=== PATIENT | male | born 1945 | race Caucasian/White ===

== ENCOUNTER 2024-01-12 23:15 | Inpatient (IN) ==
[2024-01-13] MEDS: Lactated Ringers 1000 ml BAG 1,000 ML IV ONE (00:24)
[2024-01-13] MEDS: Lactated Ringers 1000 ml BAG 1,000 ML IV SCH ×3 (00:24→22:14)
[2024-01-13 00:44] LABS: Alcohol, S < 13 mg/dL (<13)
[2024-01-13 00:46] LABS: Albumin 3.5 g/dL (3.2-5.2); Albumin/Globulin Ratio 1.2 (1-3); Creatinine, Serum 10.48 mg/dL (0.67-1.17); Potassium 4.5 mmol/L (3.5-5.0); Total Bilirubin 0.7 mg/dL (0.2-1.0); Total Protein 6.5 g/dL (6.4-8.9); eGFR CKD-EPI 4.5 (>60)
[2024-01-13 01:05] LABS: Creatine Kinase 8604 U/L (10-223)
[2024-01-13 01:06] LABS: Hematocrit 40.6 % (38-53); Hemoglobin 13.8 g/dL (13.2-16.3); Mean Corpuscular Hemoglobin 31.2 pg (27-33); Mean Corpuscular Hgb Conc 33.9 g/dL (31-36); Mean Corpuscular Volume 92.1 fL (80-97); Mean Platelet Volume 9.1 fL (7.5-11.2); Platelet Count 262 10^3/uL (150-450); Red Blood Count 4.41 10^6/uL (4.06-5.63); Red Cell Distribution Width 13.6 % (12-17); White Blood Count 24.1 10^3/uL (3.6-10.2)
[2024-01-13 01:18] LABS: INR 1.24 (0.83-1.13)
[2024-01-13 01:27] LABS: Magnesium 2.3 mg/dL (1.9-2.7); Phosphorus 5.3 mg/dL (2.5-5.0); Uric Acid 13.2 mg/dL (4.4-7.6)
[2024-01-13 02:06] LABS: High Sensitivity Troponin 1 Hr 136 pg/mL (<20)
[2024-01-13 02:19] LABS: ABS Lymphocytes 0.6 10^3/uL (1.0-4.8); ABS Monocytes 1.8 10^3/uL (0.0-1.1); ABS Neutrophils 21.7 10^3/uL (1.5-7.6); Lymphocyte % 2.3 %
[2024-01-13] MEDS: cefTRIAXone 1 gm/50 mL D5W 1 GM/50 ML BAG IV ONE (03:43)
[2024-01-13 03:53] LABS: Urine Appearance Extra Turbid; Urine Bilirubin Negative (Negative); Urine Blood 3+ (Negative); Urine Glucose Negative (Negative); Urine Ketones Trace (Negative); Urine Nitrite 2+ (Negative); Urine Protein 2+ (>=100 mg/dL) (Negative); Urine Specific Gravity 1.011 (1.002-1.030); Urine Urobilinogen Negative (Negative)
[2024-01-13 04:08] LABS: Urine Bacteria 3+ /HPF (Absent); Urine Red Blood Cell 3+(>10/hpf) /HPF (0-Trace); Urine White Blood Cell 3+(>20/hpf) /HPF (0-Trace)
[2024-01-13 04:31] LABS: C Reactive Protein 210.84 mg/L (<8.01)
[2024-01-13 04:33] LABS: Urine Color Yellow
[2024-01-13 05:15] LABS: Erythrocyte Sed Rate 40 mm/Hr (0-19)
[2024-01-13 06:11] LABS: Hematocrit 39.4 % (38-53); Hemoglobin 13.3 g/dL (13.2-16.3); Mean Corpuscular Hgb Conc 33.9 g/dL (31-36); Mean Corpuscular Volume 91.5 fL (80-97); Mean Platelet Volume 8.7 fL (7.5-11.2); Platelet Count 225 10^3/uL (150-450); Red Cell Distribution Width 13.3 % (12-17); White Blood Count 24.2 10^3/uL (3.6-10.2)
[2024-01-13 06:49] LABS: Calcium 7.7 mg/dL (8.6-10.3); Creatinine, Serum 10.68 mg/dL (0.67-1.17); Potassium 4.4 mmol/L (3.5-5.0); eGFR CKD-EPI 4.4 (>60)
[2024-01-13 06:53] LABS: Magnesium 2.1 mg/dL (1.9-2.7)
[2024-01-13 07:44] LABS: ABS Lymphocytes 0.4 10^3/uL (1.0-4.8); ABS Monocytes 1.7 10^3/uL (0.0-1.1); ABS Neutrophils 21.9 10^3/uL (1.5-7.6); Lymphocyte % 1.8 %; RBC Morphology Normal (Normal)
[2024-01-13] MEDS: fentaNYL 100 mcg/2 ml 50 MCG/ML VIAL ONE (15:33)
[2024-01-13] MEDS: ceFAZolin 1 GM in Dextrose 1 GM/50 ML BAG IVPB SCH (16:54)
[2024-01-13] MEDS: Lactated Ringers 1000 ml BAG 500 ML IV ONE (22:35)
[2024-01-14] MEDS ORDERED: cefTRIAXone 1 gm/50 mL D5W 1 GM/50 ML BAG IV SCH ×2 (03:00)
[2024-01-14 07:46] LABS: ABS Lymphocytes 0.6 10^3/uL (1.0-4.8); ABS Monocytes 1.1 10^3/uL (0.0-1.1); ABS Neutrophils 19.6 10^3/uL (1.5-7.6); Hematocrit 41.1 % (38-53); Hemoglobin 13.7 g/dL (13.2-16.3); Lymphocyte % 2.6 %; Mean Corpuscular Hemoglobin 30.7 pg (27-33); Mean Corpuscular Hgb Conc 33.3 g/dL (31-36); Mean Corpuscular Volume 92.3 fL (80-97); Mean Platelet Volume 8.7 fL (7.5-11.2); Platelet Count 225 10^3/uL (150-450); Red Blood Count 4.46 10^6/uL (4.06-5.63); Red Cell Distribution Width 13.4 % (12-17); White Blood Count 21.3 10^3/uL (3.6-10.2)
[2024-01-14 07:52] LABS: INR 1.36 (0.83-1.13)
[2024-01-14 08:34] LABS: C Reactive Protein 367.74 mg/L (<8.01); Calcium 7.7 mg/dL (8.6-10.3); Creatinine, Serum 6.26 mg/dL (0.67-1.17); Magnesium 2.1 mg/dL (1.9-2.7); Phosphorus 4.4 mg/dL (2.5-5.0); eGFR CKD-EPI 8.4 (>60)
[2024-01-14 11:48] LABS: Hematocrit 40.7 % (38-53); Hemoglobin 13.6 g/dL (13.2-16.3); Mean Corpuscular Hemoglobin 30.7 pg (27-33); Mean Corpuscular Hgb Conc 33.4 g/dL (31-36); Platelet Count 249 10^3/uL (150-450); Red Blood Count 4.42 10^6/uL (4.06-5.63); Red Cell Distribution Width 13.7 % (12-17)
[2024-01-14 11:56] LABS: Activated Partial Thrombo Time 28.5 seconds (26.0-38.0); INR 1.3 (0.83-1.13)
[2024-01-14 12:02] LABS: Creatinine, Serum 6.02 mg/dL (0.67-1.17); eGFR CKD-EPI 8.8 (>60)
[2024-01-14 12:35] LABS: ABS Lymphocytes 0.6 10^3/uL (1.0-4.8); ABS Neutrophils 21.4 10^3/uL (1.5-7.6); ABS Nucleated RBC 0.01 10^3/ul; Lymphocyte % 2.6 %; Tear Drop Cells 2+
[2024-01-14] MEDS: NS 0.9% 1000 ml BAG 1,000 ML IV SCH (15:49)
[2024-01-14] MEDS: Acetaminophen IV 1 GM/100ML 1,000 MG/100 ML BAG IV PRN (18:07)
[2024-01-14] MEDS: Heparin 5000 UNITS/ML 1 mL VIAL SUBCUT SCH (20:20)
[2024-01-15 06:22] LABS: ABS Lymphocytes 0.7 10^3/uL (1.0-4.8); ABS Monocytes 0.6 10^3/uL (0.0-1.1); ABS Neutrophils 19.8 10^3/uL (1.5-7.6); ABS Nucleated RBC 0.01 10^3/ul; Hematocrit 38.2 % (38-53); Hemoglobin 12.8 g/dL (13.2-16.3); Lymphocyte % 3.2 %; Mean Corpuscular Hgb Conc 33.6 g/dL (31-36); Mean Corpuscular Volume 92.4 fL (80-97); Mean Platelet Volume 8.9 fL (7.5-11.2); Platelet Count 228 10^3/uL (150-450); Red Blood Count 4.14 10^6/uL (4.06-5.63); Red Cell Distribution Width 13.9 % (12-17); White Blood Count 21.1 10^3/uL (3.6-10.2)
[2024-01-15 07:15] LABS: Anion Gap 15 mmol/L (2-16); Blood Urea Nitrogen 91 mg/dL (6-24); CO2 Carbon Dioxide 21 mmol/L (22-32); Calcium 7.7 mg/dL (8.6-10.3); Chloride 113 mmol/L (101-111); Creatinine, Serum 4.08 mg/dL (0.67-1.17); Glucose 155 mg/dL (70-100); Magnesium 2.4 mg/dL (1.9-2.7); Sodium 149 mmol/L (135-145)
[2024-01-15] MEDS ORDERED: Labetalol IV 5 MG/ML 20 ml VIAL IV PUSH PRN (07:22)
[2024-01-15 09:02] LABS: Albumin 2.8 g/dL (3.2-5.2); C Reactive Protein 347.13 mg/L (<8.01); Direct Bilirubin 0.2 mg/dL (0.03-0.18); Globulin 2.8 g/dL (2-4); Indirect Bilirubin 0.5 mg/dL (0.3-1.0); Phosphorus 4.1 mg/dL (2.5-5.0); Potassium Redraw 3.8 mmol/L (3.5-5.0); Total Bilirubin 0.7 mg/dL (0.2-1.0); Total Protein 5.6 g/dL (6.4-8.9)
[2024-01-15] MEDS: D5W 1/2 NS 1000 ml BAG 1,000 ML IV SCH ×2 (12:13→19:54)
[2024-01-15] MEDS: ceFAZolin 1 GM in Dextrose 1 GM/50 ML BAG IVPB SCH (12:15)
[2024-01-16 06:19] LABS: Hematocrit 39.2 % (38-53); Mean Corpuscular Hemoglobin 30.7 pg (27-33); Mean Corpuscular Hgb Conc 33.2 g/dL (31-36); Mean Corpuscular Volume 92.5 fL (80-97); Mean Platelet Volume 9.8 fL (7.5-11.2); Platelet Count 236 10^3/uL (150-450); Red Blood Count 4.23 10^6/uL (4.06-5.63); Red Cell Distribution Width 13.9 % (12-17); White Blood Count 18.7 10^3/uL (3.6-10.2)
[2024-01-16 06:44] LABS: Albumin 2.7 g/dL (3.2-5.2); Albumin/Globulin Ratio 0.9 (1-3); Calcium 7.7 mg/dL (8.6-10.3); Creatinine, Serum 2.93 mg/dL (0.67-1.17); Globulin 2.9 g/dL (2-4); Magnesium 2.4 mg/dL (1.9-2.7); Phosphorus 3.1 mg/dL (2.5-5.0); Potassium 3.9 mmol/L (3.5-5.0); Total Bilirubin 0.8 mg/dL (0.2-1.0); Total Protein 5.6 g/dL (6.4-8.9); eGFR CKD-EPI 20.8 (>60)
[2024-01-16 07:36] LABS: ABS Basophils 0.1 10^3/uL (0.0-0.1); ABS Lymphocytes 0.6 10^3/uL (1.0-4.8); ABS Monocytes 0.5 10^3/uL (0.0-1.1); ABS Neutrophils 17.4 10^3/uL (1.5-7.6); Eosinophil % 0.2 %; Lymphocyte % 3.4 %
[2024-01-17 06:18] LABS: Hematocrit 38.7 % (38-53); Hemoglobin 12.8 g/dL (13.2-16.3); Mean Corpuscular Hemoglobin 30.7 pg (27-33); Mean Corpuscular Hgb Conc 33.1 g/dL (31-36); Mean Corpuscular Volume 92.7 fL (80-97); Mean Platelet Volume 9.4 fL (7.5-11.2); Platelet Count 291 10^3/uL (150-450); Red Blood Count 4.18 10^6/uL (4.06-5.63); Red Cell Distribution Width 14.1 % (12-17); White Blood Count 19.4 10^3/uL (3.6-10.2)
[2024-01-17 06:47] LABS: Calcium 7.8 mg/dL (8.6-10.3); Creatinine, Serum 2.41 mg/dL (0.67-1.17); Magnesium 2.2 mg/dL (1.9-2.7); Phosphorus 3.2 mg/dL (2.5-5.0); Potassium 3.8 mmol/L (3.5-5.0); eGFR CKD-EPI 26.3 (>60)
[2024-01-17 08:24] LABS: ABS Eosinophils 0.2 10^3/uL (0.0-0.5); ABS Lymphocytes 0.8 10^3/uL (1.0-4.8); ABS Monocytes 0.7 10^3/uL (0.0-1.1); ABS Neutrophils 17.7 10^3/uL (1.5-7.6); Eosinophil % 1.1 %; Lymphocyte % 3.9 %
[2024-01-17] MEDS: ceFAZolin 1 GM in Dextrose 1 GM/50 ML BAG IVPB SCH (09:33)
[2024-01-17 15:35] LABS: Uric Acid 9.2 mg/dL (4.4-7.6)
[2024-01-17 18:11] LABS: Body Fluid Total Nucleated 4544 /mcL
[2024-01-17 18:13] LABS: Body Fluid Appearance Cloudy; Body Fluid Color Yellow; Body Fluid Source Synovial Fluid
[2024-01-17 18:36] LABS: Body Fluid Mono 5 %; Body Fluid NRBC 3; Body Fluid Total Cells Counted 200
[2024-01-18 06:31] LABS: Hematocrit 37.6 % (38-53); Hemoglobin 12.4 g/dL (13.2-16.3); Mean Corpuscular Hemoglobin 30.4 pg (27-33); Mean Corpuscular Volume 92.3 fL (80-97); Mean Platelet Volume 8.9 fL (7.5-11.2); Platelet Count 307 10^3/uL (150-450); Red Blood Count 4.07 10^6/uL (4.06-5.63); Red Cell Distribution Width 13.9 % (12-17); White Blood Count 23.2 10^3/uL (3.6-10.2)
[2024-01-18 07:09] LABS: Albumin 2.5 g/dL (3.2-5.2); Albumin/Globulin Ratio 0.9 (1-3); Calcium 7.8 mg/dL (8.6-10.3); Creatinine, Serum 2.1 mg/dL (0.67-1.17); Globulin 2.7 g/dL (2-4); Magnesium 2.1 mg/dL (1.9-2.7); Potassium 3.7 mmol/L (3.5-5.0); Total Bilirubin 0.6 mg/dL (0.2-1.0); Total Protein 5.2 g/dL (6.4-8.9)
[2024-01-18 08:47] LABS: ABS Eosinophils 0.2 10^3/uL (0.0-0.5); ABS Monocytes 0.7 10^3/uL (0.0-1.1); ABS Neutrophils 21.3 10^3/uL (1.5-7.6); Eosinophil % 0.9 %; Lymphocyte % 4.2 %; RBC Morphology Normal (Normal)
[2024-01-18] MEDS: Oxacillin 2 GM in NS 0.9% 100 ml BAG 100 ML IVPB SCH (16:15)
[2024-01-19 06:15] LABS: Hematocrit 37.6 % (38-53); Hemoglobin 12.4 g/dL (13.2-16.3); Mean Corpuscular Hemoglobin 30.6 pg (27-33); Mean Corpuscular Volume 92.9 fL (80-97); Mean Platelet Volume 9.2 fL (7.5-11.2); Platelet Count 359 10^3/uL (150-450); Red Blood Count 4.05 10^6/uL (4.06-5.63); Red Cell Distribution Width 13.9 % (12-17); White Blood Count 25.5 10^3/uL (3.6-10.2)
[2024-01-19 06:41] LABS: Albumin 2.5 g/dL (3.2-5.2); Albumin/Globulin Ratio 0.8 (1-3); C Reactive Protein 181.04 mg/L (<8.01); Calcium 7.7 mg/dL (8.6-10.3); Creatinine, Serum 2.17 mg/dL (0.67-1.17); Globulin 3.1 g/dL (2-4); Magnesium 2.1 mg/dL (1.9-2.7); Total Bilirubin 0.6 mg/dL (0.2-1.0); Total Protein 5.6 g/dL (6.4-8.9); eGFR CKD-EPI 29.8 (>60)
[2024-01-19 06:45] LABS: ABS Eosinophils 0.2 10^3/uL (0.0-0.5); ABS Monocytes 1.1 10^3/uL (0.0-1.1); ABS Neutrophils 23.1 10^3/uL (1.5-7.6); ABS Nucleated RBC 0.01 10^3/ul; Eosinophil % 0.8 %
[2024-01-19] MEDS: Lactated Ringers 1000 ml BAG 1,000 ML IV SCH (07:43)
[2024-01-19 08:06] LABS: Erythrocyte Sed Rate 57 mm/Hr (0-19)
[2024-01-19] MEDS ORDERED: oxyCODONE SR 10 mg TAB PO SCH (22:00)
[2024-01-20 07:01] LABS: Hematocrit 35.3 % (38-53); Hemoglobin 11.6 g/dL (13.2-16.3); Mean Corpuscular Hemoglobin 30.5 pg (27-33); Mean Corpuscular Hgb Conc 32.8 g/dL (31-36); Mean Corpuscular Volume 93.1 fL (80-97); Mean Platelet Volume 9.6 fL (7.5-11.2); Platelet Count 358 10^3/uL (150-450); Red Blood Count 3.79 10^6/uL (4.06-5.63); Red Cell Distribution Width 13.5 % (12-17); White Blood Count 23.3 10^3/uL (3.6-10.2)
[2024-01-20 07:14] LABS: ABS Eosinophils 0.2 10^3/uL (0.0-0.5); ABS Lymphocytes 1.1 10^3/uL (1.0-4.8); ABS Monocytes 1.1 10^3/uL (0.0-1.1); ABS Neutrophils 20.9 10^3/uL (1.5-7.6); Lymphocyte % 4.6 %
[2024-01-20 09:57] LABS: Albumin 2.3 g/dL (3.2-5.2); Albumin/Globulin Ratio 0.8 (1-3); Calcium 7.5 mg/dL (8.6-10.3); Creatinine, Serum 2.46 mg/dL (0.67-1.17); Globulin 2.9 g/dL (2-4); Total Bilirubin 0.5 mg/dL (0.2-1.0); Total Protein 5.2 g/dL (6.4-8.9); eGFR CKD-EPI 25.7 (>60)
[2024-01-20] MEDS: fentaNYL 100 mcg/2 ml 50 MCG/ML VIAL ONE (22:05)
[2024-01-21 06:29] LABS: ABS Eosinophils 0.2 10^3/uL (0.0-0.5); ABS Lymphocytes 0.9 10^3/uL (1.0-4.8); ABS Monocytes 1.3 10^3/uL (0.0-1.1); ABS Neutrophils 16.1 10^3/uL (1.5-7.6); Eosinophil % 1.2 %; Hematocrit 34.3 % (38-53); Hemoglobin 11.4 g/dL (13.2-16.3); Lymphocyte % 4.8 %; Mean Corpuscular Hemoglobin 30.8 pg (27-33); Mean Corpuscular Hgb Conc 33.3 g/dL (31-36); Mean Corpuscular Volume 92.5 fL (80-97); Mean Platelet Volume 9.4 fL (7.5-11.2); Platelet Count 376 10^3/uL (150-450); Red Blood Count 3.71 10^6/uL (4.06-5.63); Red Cell Distribution Width 13.7 % (12-17); White Blood Count 18.5 10^3/uL (3.6-10.2)
[2024-01-21 06:43] LABS: Calcium 7.5 mg/dL (8.6-10.3); Creatinine, Serum 1.89 mg/dL (0.67-1.17); Magnesium 1.8 mg/dL (1.9-2.7); Potassium 3.9 mmol/L (3.5-5.0); eGFR CKD-EPI 35.2 (>60)
[2024-01-21] MEDS: Magnesium Sulfate 2 gm BAG 2 GM/50 ML BAG IVPB ONE (09:51)
[2024-01-21 11:27] LABS: C Reactive Protein 141.17 mg/L (<8.01)
[2024-01-21 14:51] LABS: B. burgdorferi PCR Negative (Negative); B. garinii/B. afzellii PCR Negative (Negative); Lyme Disease Source SYNOVIAL
[2024-01-22 07:07] LABS: ABS Eosinophils 0.2 10^3/uL (0.0-0.5); ABS Monocytes 0.9 10^3/uL (0.0-1.1); ABS Neutrophils 17.9 10^3/uL (1.5-7.6); Eosinophil % 1.2 %; Hematocrit 33.1 % (38-53); Hemoglobin 11.1 g/dL (13.2-16.3); Lymphocyte % 5.1 %; Mean Corpuscular Hemoglobin 30.9 pg (27-33); Mean Corpuscular Hgb Conc 33.4 g/dL (31-36); Mean Corpuscular Volume 92.5 fL (80-97); Mean Platelet Volume 8.9 fL (7.5-11.2); Platelet Count 387 10^3/uL (150-450); Red Blood Count 3.58 10^6/uL (4.06-5.63); Red Cell Distribution Width 13.7 % (12-17); White Blood Count 20.1 10^3/uL (3.6-10.2)
[2024-01-22 07:39] LABS: Calcium 7.4 mg/dL (8.6-10.3); Creatinine, Serum 1.81 mg/dL (0.67-1.17); Magnesium 1.9 mg/dL (1.9-2.7); Potassium 3.8 mmol/L (3.5-5.0); eGFR CKD-EPI 37.1 (>60)
[2024-01-23 06:29] LABS: ABS Eosinophils 0.1 10^3/uL (0.0-0.5); ABS Nucleated RBC 0.01 10^3/ul; Eosinophil % 0.8 %; Hematocrit 34.1 % (38-53); Hemoglobin 11.1 g/dL (13.2-16.3); Lymphocyte % 5.3 %; Mean Corpuscular Hemoglobin 30.5 pg (27-33); Mean Corpuscular Hgb Conc 32.6 g/dL (31-36); Mean Corpuscular Volume 93.7 fL (80-97); Mean Platelet Volume 9.1 fL (7.5-11.2); Platelet Count 434 10^3/uL (150-450); Red Blood Count 3.64 10^6/uL (4.06-5.63); Red Cell Distribution Width 13.8 % (12-17); White Blood Count 18.2 10^3/uL (3.6-10.2)
[2024-01-23 06:52] LABS: Albumin 2.3 g/dL (3.2-5.2); Albumin/Globulin Ratio 0.7 (1-3); Calcium 7.5 mg/dL (8.6-10.3); Creatinine, Serum 1.75 mg/dL (0.67-1.17); Globulin 3.3 g/dL (2-4); Magnesium 1.9 mg/dL (1.9-2.7); Potassium 3.9 mmol/L (3.5-5.0); Total Bilirubin 0.6 mg/dL (0.2-1.0); Total Protein 5.6 g/dL (6.4-8.9); eGFR CKD-EPI 38.6 (>60)
[2024-01-24 06:10] LABS: ABS Eosinophils 0.1 10^3/uL (0.0-0.5); ABS Lymphocytes 0.7 10^3/uL (1.0-4.8); ABS Neutrophils 15.5 10^3/uL (1.5-7.6); Eosinophil % 0.8 %; Hematocrit 32.9 % (38-53); Hemoglobin 10.9 g/dL (13.2-16.3); Lymphocyte % 4.1 %; Mean Corpuscular Hemoglobin 30.9 pg (27-33); Mean Corpuscular Hgb Conc 33.2 g/dL (31-36); Mean Platelet Volume 8.9 fL (7.5-11.2); Platelet Count 434 10^3/uL (150-450); Red Blood Count 3.54 10^6/uL (4.06-5.63); White Blood Count 17.4 10^3/uL (3.6-10.2)
[2024-01-24 07:00] LABS: Albumin 2.1 g/dL (3.2-5.2); Albumin/Globulin Ratio 0.6 (1-3); Calcium 7.5 mg/dL (8.6-10.3); Creatinine, Serum 1.77 mg/dL (0.67-1.17); Globulin 3.3 g/dL (2-4); Magnesium 1.7 mg/dL (1.9-2.7); Total Bilirubin 0.5 mg/dL (0.2-1.0); Total Protein 5.4 g/dL (6.4-8.9); eGFR CKD-EPI 38.1 (>60)
[2024-01-24] MEDS: NS 0.9% 1000 ml BAG 1,000 ML IV SCH (11:17)
[2024-01-25 06:10] LABS: ABS Eosinophils 0.1 10^3/uL (0.0-0.5); ABS Lymphocytes 0.7 10^3/uL (1.0-4.8); ABS Monocytes 0.9 10^3/uL (0.0-1.1); ABS Neutrophils 13.4 10^3/uL (1.5-7.6); Eosinophil % 0.9 %; Hematocrit 28.8 % (38-53); Hemoglobin 9.8 g/dL (13.2-16.3); Lymphocyte % 4.8 %; Mean Corpuscular Hemoglobin 31.7 pg (27-33); Mean Platelet Volume 8.6 fL (7.5-11.2); Platelet Count 455 10^3/uL (150-450); Red Blood Count 3.09 10^6/uL (4.06-5.63); Red Cell Distribution Width 13.7 % (12-17); White Blood Count 15.3 10^3/uL (3.6-10.2)
[2024-01-25 06:51] LABS: Calcium 7.4 mg/dL (8.6-10.3); Creatinine, Serum 1.68 mg/dL (0.67-1.17); Magnesium 1.6 mg/dL (1.9-2.7); Potassium 3.9 mmol/L (3.5-5.0); eGFR CKD-EPI 40.6 (>60)
[2024-01-26 05:20] LABS: ABS Eosinophils 0.2 10^3/uL (0.0-0.5); ABS Lymphocytes 0.7 10^3/uL (1.0-4.8); ABS Monocytes 0.7 10^3/uL (0.0-1.1); ABS Neutrophils 12.7 10^3/uL (1.5-7.6); ABS Nucleated RBC 0.01 10^3/ul; Eosinophil % 1.2 %; Hematocrit 29.3 % (38-53); Hemoglobin 9.7 g/dL (13.2-16.3); Mean Corpuscular Hemoglobin 30.6 pg (27-33); Mean Corpuscular Hgb Conc 32.9 g/dL (31-36); Mean Platelet Volume 8.3 fL (7.5-11.2); Platelet Count 479 10^3/uL (150-450); Red Blood Count 3.15 10^6/uL (4.06-5.63); Red Cell Distribution Width 13.6 % (12-17); White Blood Count 14.3 10^3/uL (3.6-10.2)
[2024-01-26 05:48] LABS: Albumin/Globulin Ratio 0.6 (1-3); Calcium 7.5 mg/dL (8.6-10.3); Creatinine, Serum 1.72 mg/dL (0.67-1.17); Globulin 3.2 g/dL (2-4); Magnesium 1.6 mg/dL (1.9-2.7); Potassium 3.8 mmol/L (3.5-5.0); Total Bilirubin 0.4 mg/dL (0.2-1.0); Total Protein 5.2 g/dL (6.4-8.9); eGFR CKD-EPI 39.4 (>60)
[2024-01-26] MEDS: Magnesium Sulfate 2 gm BAG 2 GM/50 ML BAG IVPB ONE (09:16)
[2024-01-26] MEDS: Lactated Ringers 1000 ml BAG 1,000 ML IV SCH (10:27)
[2024-01-26] MEDS: Magnesium Sulfate IV 1GM/100ML 1 GM/100 ML BAG IV ONE (10:27)
[2024-01-27 06:28] LABS: ABS Eosinophils 0.2 10^3/uL (0.0-0.5); ABS Lymphocytes 0.8 10^3/uL (1.0-4.8); ABS Monocytes 0.8 10^3/uL (0.0-1.1); ABS Neutrophils 9.4 10^3/uL (1.5-7.6); Eosinophil % 1.4 %; Hematocrit 28.8 % (38-53); Hemoglobin 9.8 g/dL (13.2-16.3); Lymphocyte % 6.8 %; Mean Corpuscular Hemoglobin 31.4 pg (27-33); Mean Corpuscular Volume 92.5 fL (80-97); Platelet Count 492 10^3/uL (150-450); Red Blood Count 3.11 10^6/uL (4.06-5.63); Red Cell Distribution Width 13.7 % (12-17); White Blood Count 11.1 10^3/uL (3.6-10.2)
[2024-01-27 06:54] LABS: Calcium 7.6 mg/dL (8.6-10.3); Creatinine, Serum 1.6 mg/dL (0.67-1.17); Magnesium 1.9 mg/dL (1.9-2.7); Potassium 3.6 mmol/L (3.5-5.0)
[2024-01-27] MEDS ORDERED: fentaNYL 100 mcg/2 ml 50 MCG/ML VIAL ONE ×2 (08:26→10:30)
[2024-01-27] MEDS ORDERED: Lidocaine 2% PF 5 ML VIAL ONE (08:26)
[2024-01-27] MEDS ORDERED: Propofol 10 MG/ML 20 ML BTL ONE ×3 (08:26→09:50)
[2024-01-27] MEDS ORDERED: Ondansetron 4 mg VIAL 2 MG/ML 2 ml VIAL IV PRN (10:43)
[2024-01-27] MEDS ORDERED: Naloxone 0.4 mg VIAL 0.4 mg/ml 1 ml VIAL IV PRN (10:43)
[2024-01-27] MEDS ORDERED: oxyCODONE/Acetamin 5/325 mg TAB PO PRN (10:43)
[2024-01-27] MEDS: fentaNYL 100 mcg/2 ml 50 MCG/ML VIAL IV PRN (10:46)
[2024-01-27 12:16] LABS: ABS Eosinophils 0.1 10^3/uL (0.0-0.5); ABS Lymphocytes 0.7 10^3/uL (1.0-4.8); ABS Monocytes 0.7 10^3/uL (0.0-1.1); ABS Neutrophils 10.6 10^3/uL (1.5-7.6); Eosinophil % 0.7 %; Hematocrit 32.7 % (38-53); Hemoglobin 10.4 g/dL (13.2-16.3); Mean Corpuscular Hemoglobin 29.9 pg (27-33); Mean Corpuscular Hgb Conc 31.8 g/dL (31-36); Mean Corpuscular Volume 93.8 fL (80-97); Mean Platelet Volume 8.2 fL (7.5-11.2); Platelet Count 496 10^3/uL (150-450); Red Blood Count 3.48 10^6/uL (4.06-5.63); Red Cell Distribution Width 13.8 % (12-17); White Blood Count 12.2 10^3/uL (3.6-10.2)
[2024-01-27 12:27] LABS: Activated Partial Thrombo Time 31.3 seconds (26.0-38.0); INR 1.21 (0.83-1.13)
[2024-01-27 12:46] LABS: Creatinine, Serum 1.63 mg/dL (0.67-1.17); eGFR CKD-EPI 42.1 (>60)
[2024-01-27] MEDS: Magnesium Sulfate IV 1GM/100ML 1 GM/100 ML BAG IV ONE (13:43)
[2024-01-27] MEDS: Heparin 5000 UNITS/ML 1 mL VIAL SUBCUT SCH (13:44)
[2024-01-27] MEDS: Morphine 4 MG/ML VIAL (1 ml) IV PRN (16:27)
[2024-01-28 06:45] LABS: Hematocrit 29.1 % (38-53); Hemoglobin 9.7 g/dL (13.2-16.3); Mean Corpuscular Hemoglobin 30.9 pg (27-33); Mean Corpuscular Hgb Conc 33.3 g/dL (31-36); Mean Corpuscular Volume 92.7 fL (80-97); Platelet Count 498 10^3/uL (150-450); Red Blood Count 3.14 10^6/uL (4.06-5.63); Red Cell Distribution Width 13.7 % (12-17); White Blood Count 21.9 10^3/uL (3.6-10.2)
[2024-01-28 07:06] LABS: ABS Eosinophils 0.1 10^3/uL (0.0-0.5); ABS Lymphocytes 0.6 10^3/uL (1.0-4.8); ABS Monocytes 0.5 10^3/uL (0.0-1.1); ABS Neutrophils 20.7 10^3/uL (1.5-7.6); ABS Nucleated RBC 0.01 10^3/ul; Eosinophil % 0.3 %; Lymphocyte % 2.8 %
[2024-01-28 07:17] LABS: Calcium 7.6 mg/dL (8.6-10.3); Creatinine, Serum 1.72 mg/dL (0.67-1.17); Potassium 3.9 mmol/L (3.5-5.0); eGFR CKD-EPI 39.4 (>60)
[2024-01-28 16:46] LABS: Rapid COVID-19 Molecular Undetected (Undetected)
[2024-01-28] MEDS: Senna TAB 8.6 mg TAB PO SCH (19:45)
[2024-01-29 08:15] LABS: Hematocrit 27.7 % (38-53); Hemoglobin 9.4 g/dL (13.2-16.3); Mean Corpuscular Hemoglobin 31.4 pg (27-33); Mean Corpuscular Volume 92.4 fL (80-97); Mean Platelet Volume 7.7 fL (7.5-11.2); Platelet Count 475 10^3/uL (150-450); Red Cell Distribution Width 13.5 % (12-17); White Blood Count 12.4 10^3/uL (3.6-10.2)
[2024-01-29 09:00] LABS: Calcium 7.6 mg/dL (8.6-10.3); Creatinine, Serum 1.63 mg/dL (0.67-1.17); Potassium 3.9 mmol/L (3.5-5.0); eGFR CKD-EPI 42.1 (>60)
[2024-01-30 05:26] LABS: ABS Basophils 0.1 10^3/uL (0.0-0.1); ABS Eosinophils 0.2 10^3/uL (0.0-0.5); ABS Lymphocytes 0.7 10^3/uL (1.0-4.8); ABS Monocytes 0.5 10^3/uL (0.0-1.1); ABS Neutrophils 8.1 10^3/uL (1.5-7.6); ABS Nucleated RBC 0.01 10^3/ul; Eosinophil % 2.4 %; Hematocrit 26.7 % (38-53); Hemoglobin 9.1 g/dL (13.2-16.3); Lymphocyte % 7.4 %; Mean Corpuscular Hemoglobin 31.2 pg (27-33); Mean Platelet Volume 7.5 fL (7.5-11.2); Nucleated Red Blood Cells % 0.1 %/100WBC (0.0-0.8); Platelet Count 466 10^3/uL (150-450); Red Cell Distribution Width 13.2 % (12-17); White Blood Count 9.6 10^3/uL (3.6-10.2)
[2024-01-30 11:00] VITALS: BP 122/79
== END 2024-01-30 13:45 | disposition swing bed (61) | DRG 853 ==
LOC: ED 23:15 → EDHOLD 23:15 → SUATTDRO 01-13 03:32 → MED 01-13 14:37 → SUATTDRO 01-14 11:48
PROVIDERS: ADMIT Student in an Organized Health Care Education/Training Program; ATTEND Internal Medicine

== ENCOUNTER 2024-08-18 21:44 | Inpatient (IN) ==
[2024-08-18] MEDS ORDERED: Morphine 4 MG/ML VIAL (1 ml) ONE (23:37)
[2024-08-18] MEDS: Lidocaine 2% JELLY 6 ML Topical TOPICAL ONE (23:40)
[2024-08-18] MEDS: Morphine 4 MG/ML VIAL (1 ml) IV ONE (23:47)
[2024-08-19 00:01] LABS: ABS Eosinophils 0.1 10^3/uL (0.0-0.5); ABS Lymphocytes 0.9 10^3/uL (1.0-4.8); ABS Neutrophils 3.3 10^3/uL (1.5-7.6); ABS Nucleated RBC 0.01 10^3/ul; Eosinophil % 3.2 %; Hematocrit 38.2 % (38-53); Hemoglobin 12.8 g/dL (13.2-16.3); Lymphocyte % 20.8 %; Mean Corpuscular Hemoglobin 30.7 pg (27-33); Mean Corpuscular Hgb Conc 33.5 g/dL (31-36); Mean Corpuscular Volume 91.7 fL (80-97); Mean Platelet Volume 7.8 fL (7.5-11.2); Nucleated Red Blood Cells % 0.2 %/100WBC (0.0-0.8); Platelet Count 296 10^3/uL (150-450); Red Blood Count 4.17 10^6/uL (4.06-5.63); Red Cell Distribution Width 15.4 % (12-17); White Blood Count 4.4 10^3/uL (3.6-10.2)
[2024-08-19 00:23] LABS: Activated Partial Thrombo Time 31.1 seconds (26.0-38.0); INR 1.11 (0.85-1.14)
[2024-08-19] MEDS: NS 0.9% 1000 ml BAG 1,000 ML IV ONE (01:10)
[2024-08-19 01:11] LABS: Albumin/Globulin Ratio 1.2 (1-3); C Reactive Protein 2.33 mg/L (<8.01); Calcium 9.5 mg/dL (8.6-10.3); Creatinine, Serum 1.76 mg/dL (0.67-1.17); Globulin 3.4 g/dL (2-4); Potassium 4.3 mmol/L (3.5-5.0); Total Bilirubin 0.4 mg/dL (0.2-1.0); Total Protein 7.4 g/dL (6.4-8.9); eGFR CKD-EPI 38.4 (>60)
[2024-08-19 01:16] LABS: Urine Appearance Turbid; Urine Bilirubin Negative (Negative); Urine Blood 3+ (Negative); Urine Color Light-Yellow; Urine Glucose Negative (Negative); Urine Ketones Negative (Negative); Urine Nitrite 2+ (Negative); Urine Protein 1+ (>=30 mg/dL) (Negative); Urine Specific Gravity 1.016 (1.002-1.030); Urine Urobilinogen Negative (Negative); Urine pH 5.5 (5.0-8.0)
[2024-08-19 01:25] LABS: Urine Bacteria 2+ /HPF (Absent); Urine Red Blood Cell 3+(>10/hpf) /HPF (0-Trace); Urine White Blood Cell 3+(>20/hpf) /HPF (0-Trace)
[2024-08-19 01:29] LABS: High Sensitivity Troponin 1 Hr 17 pg/mL (<20)
[2024-08-19] MEDS: cefTRIAXone 1 gm/50 mL D5W 1 GM/50 ML BAG IV ONE ×2 (04:11→10:48)
[2024-08-19] MEDS: Lactated Ringers 1000 ml BAG IV.FLUID IV ONE ×2 (09:21→11:42)
[2024-08-19 10:10] LABS: Albumin 3.2 g/dL (3.2-5.2); Albumin/Globulin Ratio 1.2 (1-3); Creatinine, Serum 1.82 mg/dL (0.67-1.17); Globulin 2.6 g/dL (2-4); Potassium 3.8 mmol/L (3.5-5.0); Total Bilirubin 0.7 mg/dL (0.2-1.0); Total Protein 5.8 g/dL (6.4-8.9); eGFR CKD-EPI 36.9 (>60)
[2024-08-19 11:19] LABS: High Sensitivity Troponin 1 Hr 32 pg/mL (<20)
[2024-08-19] MEDS ORDERED: Lidocaine PATCH 5% PATCH TRANSDERM PRN (11:38)
[2024-08-19] MEDS ORDERED: Magnesium Hydroxide LIQ 30 ML UDC PO PRN (11:38)
[2024-08-19] MEDS: Lactated Ringers 1000 ml BAG 1,000 ML IV ONE ×3 (11:42→21:43)
[2024-08-19 12:11] LABS: C Reactive Protein 31.69 mg/L (<8.01)
[2024-08-20 06:09] LABS: ABS Basophils 0.1 10^3/uL (0.0-0.1); ABS Eosinophils 0.1 10^3/uL (0.0-0.5); ABS Lymphocytes 0.8 10^3/uL (1.0-4.8); ABS Monocytes 0.8 10^3/uL (0.0-1.1); ABS Neutrophils 17.1 10^3/uL (1.5-7.6); Eosinophil % 0.6 %; Hematocrit 30.7 % (38-53); Hemoglobin 10.4 g/dL (13.2-16.3); Lymphocyte % 4.5 %; Mean Corpuscular Hemoglobin 30.4 pg (27-33); Mean Corpuscular Hgb Conc 33.7 g/dL (31-36); Mean Corpuscular Volume 90.1 fL (80-97); Platelet Count 176 10^3/uL (150-450); Red Blood Count 3.41 10^6/uL (4.06-5.63); Red Cell Distribution Width 15.8 % (12-17)
[2024-08-20 06:34] LABS: Magnesium 1.6 mg/dL (1.9-2.7)
[2024-08-20] MEDS: cefTRIAXone 2 gm/50 mL D5W 2 GM/50 ML BAG IV SCH (09:28)
[2024-08-20 09:29] LABS: Calcium 7.9 mg/dL (8.6-10.3); Creatinine, Serum 1.67 mg/dL (0.67-1.17); Potassium 3.9 mmol/L (3.5-5.0); eGFR CKD-EPI 40.9 (>60)
[2024-08-20] MEDS: DULoxetine DR 20 mg CAP PO SCH (09:30)
[2024-08-21 11:39] LABS: Anion Gap 7 mmol/L (2-16); Blood Urea Nitrogen 32 mg/dL (6-24); CO2 Carbon Dioxide 26 mmol/L (22-32); Calcium 8.8 mg/dL (8.6-10.3); Chloride 105 mmol/L (101-111); Creatinine, Serum 1.62 mg/dL (0.67-1.17); Glucose 129 mg/dL (70-100); Sodium 138 mmol/L (135-145); eGFR CKD-EPI 42.4 (>60)
[2024-08-21 16:29] LABS: Potassium, Whole Blood 4.1 mmol/L (3.4-4.5)
[2024-08-22 06:37] LABS: Calcium 8.5 mg/dL (8.6-10.3); Creatinine, Serum 1.45 mg/dL (0.67-1.17); Potassium 3.9 mmol/L (3.5-5.0); eGFR CKD-EPI 48.4 (>60)
[2024-08-23 21:11] LABS: Rapid COVID-19 Molecular Undetected (Undetected)
[2024-08-24 09:12] LABS: ABS Basophils 0.1 10^3/uL (0.0-0.1); ABS Eosinophils 0.5 10^3/uL (0.0-0.5); ABS Lymphocytes 1.2 10^3/uL (1.0-4.8); ABS Monocytes 0.6 10^3/uL (0.0-1.1); ABS Neutrophils 6.2 10^3/uL (1.5-7.6); Eosinophil % 5.6 %; Hematocrit 37.9 % (38-53); Hemoglobin 12.6 g/dL (13.2-16.3); Lymphocyte % 14.1 %; Mean Corpuscular Hemoglobin 29.9 pg (27-33); Mean Corpuscular Hgb Conc 33.3 g/dL (31-36); Mean Corpuscular Volume 89.6 fL (80-97); Platelet Count 268 10^3/uL (150-450); Red Blood Count 4.23 10^6/uL (4.06-5.63); Red Cell Distribution Width 15.4 % (12-17); White Blood Count 8.5 10^3/uL (3.6-10.2)
[2024-08-24 09:28] VITALS: BP 156/92
== END 2024-08-24 12:15 | DRG 698 ==
LOC: EDHOLD 21:44 → ED 21:44 → OBSVTOIN 08-19 10:19 → SUATTDRO 08-19 10:19 → MEDTELE 08-19 13:55
PROVIDERS: ADMIT Hospitalist; ATTEND Internal Medicine